=== PATIENT | female | born 1960 | race African-American/Black ===

== ENCOUNTER 2020-02-27 17:56 | Emergency (ER) | payer BC ==
[~2020-02-27] VITALS: Ht 165.1 cm; Wt 69.4 kg
[2020-02-27 18:03] VITALS: Ht 165.1 cm; Wt 69.4 kg
[2020-02-27 19:21] VITALS: BP 144/91
== END 2020-02-27 19:21 | disposition home or self-care (01) ==
LOC: ED 17:56
DX: S93.402A Sprain of unspecified ligament of left ankle, initial encounter (principal); I10 Essential (primary) hypertension; Z88.1 Allergy status to other antibiotic agents; Z88.5 Allergy status to narcotic agent; Z90.10 Acquired absence of unspecified breast and nipple; W18.30XA Fall on same level, unspecified, initial encounter; Y93.89 Activity, other specified; Y92.89 Other specified places as the place of occurrence of the external cause; Y99.8 Other external cause status
CPT/HCPCS: J1885; Q0092